=== PATIENT | female | born 1985 | race Caucasian/White ===

== ENCOUNTER 2018-07-20 14:17 | Emergency (ER) | payer OTHER ==
[2018-07-20 14:23] VITALS: BP 155/93
--- NOTE | 2018-07-20 14:26 | ER Report ---
History and Physical Time Seen By MD: 14:26 Hx. of Stated Complaint: PATIENT WAS CLEANING INSTRUMENTS IN THE OR AND SLICED HER FINGER HPI/ROS CHIEF COMPLAINT: Laceration HISTORY OF PRESENT ILLNESS: Is a 33-year-old female presents to the emergency department for laceration. Patient states that she was cleaning up after a procedure in her doctor's office when she was pulling the scalpel blade out of the handle and it slipped and lacerated her right middle finger finger on the dorsum side over the DIP. CMS intact. Flexion-extension intact. Patient immediately irrigated wound. The source patient will be contacted for a lab draw. Patient has no other complaints. REVIEW OF SYSTEMS: Respiratory: No cough, no dyspnea. Cardiovascular: No chest pain, no palpitations. Gastrointestinal: No vomiting, no abdominal pain. Musculoskeletal: No back pain. Integumentary: As above. Allergies: Coded Allergies: Penicillins (Verified Allergy, Severe, 07/20/18) Past Medical/Surgical History Patient has a past medical surgical history of depression. Tetanus is up-to-date times one year ago. Reviewed Nurses Notes: Yes Constitutional Vital Sign - Last 24 Hours 07/20/18 07/20/18 14:23 15:49 Temp 98.1 Pulse 72 79 Resp 24 20 B/P (MAP) 155/93 Pulse Ox 92 94 O2 Delivery Room Air Room Air Physical Exam General Appearance: The patient is alert, has no immediate need for airway protection and no current signs of toxicity. Eyes: Pupils equal and round no injection. Respiratory: Chest is non tender, lungs are clear to auscultation. Cardiac: regular rate and rhythm. Gastrointestinal: Abdomen is soft and non tender, no masses, bowel sounds normal. Musculoskeletal: Neck: Neck is supple and non tender. Extremities have full range of motion and are non tender. Skin: 2 cm laceration to the dorsum of the right hand over the DIP. CMS intact. Bleeding controlled. No visualization of tendon. DIFFERENTIAL DIAGNOSIS: After history and physical exam differential diagnosis was considered for laceration, exposure to pathogens. Medical Decision Making Data Points Laboratory Hematology Test 07/20/18 14:57 HIV (1&2) Antibody Negative (NEGATIVE) Chemistry Test 07/20/18 14:57 HIV (1&2) Antibody Negative (NEGATIVE) ED Course/Re-evaluation ED Course The patient was admitted to room. A history and physical obtained. Differential diagnoses were considered. As the patient was lacerated using a scalpel that had been used on a patient, the wound was thoroughly cleansed, per protocol we did feel the patient's blood for the protocol orders hepatitis C and B and HIV. The source patient will need to be contacted and blood work drawn. The laceration was repaired as noted below. Patient tolerated very well. Dressing was applied, a splint was applied. Instructed to follow-up with her primary care provider or return to the ER for suture removal. She just understanding and was instructed to monitor closely for signs of infection. Procedure: Laceration repair. Verbal consent was obtained from the patient. The 2 cm laceration on the volar surface of the right index finger DIPwas anesthetized in the usual fashion. The wound was scrubbed, draped and explored to its base with a gloved finger. There were no deep structures involved. No tendon injury was identified. The wound was repaired with 6, 5-0 Prolene simple interpreted sutures. The wound repair was simple. The procedure was performed by myself. Decision to Disposition Date: July 20, 2018 Decision to Disposition Time: 15:30 Depart Departure Latest Vital Signs Vital Signs Date Time Temp Pulse Resp B/P (MAP) Pulse Ox O2 Delivery O2 Flow Rate FiO2 07/20/18 15:49 79 20 94 Room Air 07/20/18 14:23 98.1 155/93 Impression: Primary Impression: Laceration Condition: Improved Disposition: HOME OR SELF-CARE Patient Instructions: Finger Laceration (ED) Additional Instructions: Keep wound dry for 48 hours. Follow up with your primary care provider in the next 7-8 days to have sutures removed. Monitor for signs of infection; redness, swelling, heat, discharge, increasing pain or red streaking. Take Tylenol or Ibuprofen as needed for pain. Return to the ER with any concerns. You may change dressing as needed. JAMES [employer]ING [employer] July 20, 2018 14:26
== END 2018-07-20 15:50 | disposition home or self-care (01) ==
LOC: ER 14:29
DX: S61.212A Laceration without foreign body of right middle finger without damage to nail, initial encounter (principal); W26.0XXA Contact with knife, initial encounter
CPT/HCPCS: 86703; 86706; 86803; 87340; 99283